=== PATIENT | female | born 1945 | race Caucasian/White ===

== ENCOUNTER 2020-08-23 10:11 | Inpatient (IN) ==
--- NOTE | 2020-08-22 12:00 | Anesthesiology Consultation ---
Date of Service August 22, 2020 Assessment & Plan (1) Encounter for pre-operative examination: COVID screening: Per assessment on 08/22: Travel screen negative, no known COVID- 19 positive contacts or current COVID-19 related symptoms. Patient vaccinated. Preop COVID testing done 08/22/20 at OR- will need to review results AM DOS. Chart Review Chart Review: Acceptable Risk for Surgery and Patient NOT seen in Pre Admission Testing History Surgery Operation Date: 08/23/20 12:10 Proposed Procedures p Left Reverse Total Shoulder Arthroplasty - Mian Hamilton MD Height/Weight Height: 5 ft 2 in Weight: 93.44 kg Allergies Allergy/AdvReac Type Severity Reaction Status Date / Time prednisone AdvReac Intermediate Syncope, Verified 08/22/20 11:57 lethargy Medications Home Medications Medication Instructions Recorded Confirmed Last Taken albuterol sulfate 1 inh INHALATION QID PRN 03/16/20 03/16/20 Unknown aspirin 81 mg PO QAM 03/16/20 03/16/20 Unknown fluticasone furoate-vilanterol 1 inh INHALATION QAM 03/16/20 03/16/20 Unknown [Breo Ellipta] lisinopril 20 mg PO QAM 03/16/20 03/16/20 Unknown meloxicam 7.5 mg PO QAM 03/16/20 03/16/20 Unknown omeprazole [Prilosec] 20 mg PO QAM 03/16/20 03/16/20 Unknown ropinirole 3 mg PO HS 03/16/20 03/16/20 Unknown simvastatin 20 mg PO HS 03/16/20 03/16/20 Unknown Past Medical History Medical History Chronic obstructive pulmonary disease well controlled GERD (gastroesophageal reflux disease) Hyperlipidemia Hypertension Osteoarthritis Osteoporosis Restless leg syndrome Past Family History Family History Other No family history of adverse response to anesthesia Past Surgical History Surgical History History of colonoscopy History of laparotomy Ovarian cyst removal History of tonsillectomy S/P hammer toe correction Left S/P knee replacement R/L Social History Smoking Status: Former smoker tobacco type: cigarettes Hx Alcohol Use: Yes Alcohol type: hard liquor alcohol intake frequency: a few times a month Hx Substance Use: No substance use type: does not use Lab Results Anesthesia Preop Results Results Anesthesia Widget: WBC 10.10 K/uL (4.8-10.8) 08/22/20 Hgb 11.8 g/dL (12.0-16.0) L 08/22/20 Hct 37.8 % (37-47) 08/22/20 Plt 364 K/uL (130-400) 08/22/20 Na 141 mmol/L (136-145) 08/22/20 K 3.7 mmol/L (3.5-5.1) 08/22/20 Cl 106 mmol/L (98-107) 08/22/20 CO2 27 mmol/L (21-32) 08/22/20 BUN 15 mg/dl (7-18) 08/22/20 Creat 0.68 mg/dl (0.6-1.2) 08/22/20 Glucose Level 97 mg/dl (70-99) 08/22/20 PT 9.8 Seconds (9.0-12.0) 08/22/20 PTT 24.5 Seconds (21.0-31.0) 08/22/20 INR 1.0 (0.9-1.1) 08/22/20 HA1c 6.1 % (4.5-5.6) H 08/22/20 Blood Type A Positive 08/22/20 Antibody Screen NEGATIVE 08/22/20 Testing Electrocardiogram Date: 08/22/20 NSR at 89bpm. Normal ECG. Chest X-Ray Date: 08/22/20 FINDINGS: Lung volumes are normal. There is no pneumothorax or pleural effusion. Linear left basilar opacity reflects atelectasis or scarring. Cardiac size is at the upper limits of normal. There is no consolidation or evidence for pulmonary edema. The appearance of the chest is unchanged. Osteoarthritis of the shoulders is incidentally noted. IMPRESSION: No acute cardiopulmonary findings. No significant change in appearance of the chest.
--- NOTE | 2020-08-22 18:40 | History & Physical Report ---
Date of Service August 22, 2020 Assessment & Plan (1) Anterior shoulder dislocation: Patient with recurrent dislocation to left shoulder after initial delayed presentation with failed. Likely has deficient rotator cuff as well. Treatment options discussed. With the amount of arthritic change to left shoulder, definitive treatment would be arthroplasty. Risks, benefits and alternatives to surgery including but not limited to infection, DVT, pain, stiffness, need for revision surgery, damage to blood vessels, damage to nerves, PE, , were discussed with the patient and they wish to proceed. Plan for left reverse total shoulder arthroplasty. Surgery scheduled for 08/23/20 at [facility] with Dr. Hamilton. All questions answered. F/u post operatively. Encounter type: subsequent encounter Laterality: left Qualified Code(s): S43.015D - Anterior dislocation of left humerus, subsequent encounter History of Present Illness Chief Complaint: Left shoulder pain Primary Care Provider: Tiffany Viral 75 year old female with PMHx significant for COPD, HTN, high cholesterol, RLS presents with acute onset of left shoulder pain. She suffered an injury to left shoulder after a fall on 08/10/20. She did not seek care initially. On 08/19/20 she presented to [facility] and was noted to have an anterior dislocation to her left shoulder. This was then subsequently reduced in the ED. She presented to our office yesterday with persistent pain. Repeat x-rays demonstrated recurrent dislocation left shoulder. CT scan of her shoulder was then obtained confirming the dislocation. She has significant degenerative changes to her shoulder and has had issues with her shoulder prior to this injury. Patient denies headaches, sweats, fevers, chills, double vision, blurred vision, cough, sore throat, dysphagia, chest pain, sob, wheezing, n/v/d/c, numbness, tingling, fatigue, urinary symptoms, mood disorders. ROS positive for left shoulder pain and stiffness. Allergies Allergy/AdvReac Type Severity Reaction Status Date / Time prednisone AdvReac Intermediate Syncope, Verified 08/22/20 11:57 lethargy Home Medications Medication Instructions Recorded Confirmed Type albuterol sulfate 1 inh INHALATION QID PRN 03/16/20 08/22/20 History aspirin 81 mg PO QAM 03/16/20 08/22/20 History fluticasone furoate-vilanterol 1 inh INHALATION QAM 03/16/20 08/22/20 History [Breo Ellipta] lisinopril 20 mg PO QAM 03/16/20 08/22/20 History meloxicam 7.5 mg PO QAM 03/16/20 08/22/20 History omeprazole [Prilosec] 20 mg PO QAM 03/16/20 08/22/20 History ropinirole 3 mg PO HS 03/16/20 08/22/20 History simvastatin 20 mg PO HS 03/16/20 08/22/20 History Past Med/Surg History Medical History Chronic obstructive pulmonary disease well controlled GERD (gastroesophageal reflux disease) Hyperlipidemia Hypertension Osteoarthritis Osteoporosis Restless leg syndrome Surgical History History of colonoscopy History of laparotomy Ovarian cyst removal History of tonsillectomy S/P hammer toe correction Left S/P knee replacement R/L Family History Other No family history of adverse response to anesthesia Social History Smoking Status: Former smoker Smoking End Date: 15 years ago; Second Hand Exposure: No; Hx Alcohol Use: Yes Alcohol type: hard liquor Hx Substance Use: No Preferred Language: Turkish Communication Ability: Effective Er Medical Technician Required: No Beliefs That Will Affect Care: None Current Living Situation: Alone Other Information That Helps Us Care for You: No Feels Safe at Home: Yes Safety Concerns: Feels Safe At This Time Assistive Devices: Denture - Upper and Denture - Lower Review of Systems All systems reviewed & are unremarkable except as noted in HPI & below Physical Exam Constitutional: well developed and well nourished; no acute distress Eyes: PERRL, conjunctivae normal, anicteric sclerae ENMT: external ear and nose normal, oropharynx normal Neck: trachea midline, no thyromegaly Respiratory: normal respiratory effort; no respiratory distress Cardiovascular: Rate/Rhythm: regular rate and regular rhythm Extremities: no edema Musculoskeletal: Diffuse tenderness to left shoulder with prominence anterior aspect of shoulder. Limited shoulder motion due to pain and known dislocation. Strength not tested. Finger and hand motion as well as elbow motion normal. Sensation and n/v status intact distally. Sensation intact over deltoid Skin: no rashes, warm and dry Neurologic: patellar DTR's 2+ bilat, sensation intact Psychiatric: A+Ox3, euthymic affect Results & Data ([facility]) Diagnostic Findings Left shoulder radiographs and CT scan demonstrate anterior shoulder dislocation with large hill sachs lesion, significant degenerative changes to glenohumeral joint. No definitive fracture noted, avulsion anterior glenoid suspected.
[~2020-08-23 10:11] MED LIST: ACETAMINOPHEN 500 MG TAB PO SCH; BUPIVACAINE 0.5 % 5 MG/1 ML PF 10ML VIAL ONE; CeleBREX 200 MG CAP PO SCH; FAMOTIDINE 20 MG TAB PO SCH; GABAPENTIN 300 MG CAP PO SCH; LR 15ML/HR IV SCH; ROPIVACAINE 0.5% HCL/PF 150 MG, BUPIVACAINE 0.75% MPF 20 ML, EPINEPHrine 30MG/30ML (OR ... INSTIL SCH; TRANEXAMIC ACID 1,000 MG **IV Intra-op IV SCH; TRANEXAMIC ACID 1,000 MG **IV Pre-op IV SCH; ceFAZolin 2000MG 2,000 MG/15 ML SYR IV SCH; dexAMETHasone 4 MG TAB PO SCH; oxyCODONE HCL 10 MG TABCR (OxyCONTIN) PO SCH
--- NOTE | 2020-08-23 10:42 | History & Physical Bridge Note ---
Date of Service August 23, 2020 History & Physical Bridge Note I have examined the patient, reviewed the History & Physical and in the interval since the performance of the History & Physical I have noted the following changes of clinical significance: no changes noted
[2020-08-23] MEDS ORDERED: PROPOFOL IV EMULSION 10 MG/ML 20 ML VIAL IV ONE (12:27)
[2020-08-23] MEDS ORDERED: fentaNYL citrate 100 MCG/2 ML VIAL ONE (12:27)
[2020-08-23] MEDS ORDERED: LIDOCAINE 2% 2 ML VIAL/AMP(20MG/ML) INFIL ONE (12:27)
[2020-08-23] MEDS ORDERED: ONDANSETRON INJ 2 MG/ML 2 ML VIAL ONE ×2 (12:27→14:12)
[2020-08-23] MEDS ORDERED: DEXAMETHASONE SOD INJ 4 MG/ML VIAL ONE ×2 (12:27→13:35)
[2020-08-23] MEDS ORDERED: MIDAZOLAM HCL 1 MG/ML 2ML VIAL ONE (12:28)
[2020-08-23] MEDS ORDERED: ATROPINE SULFATE 0.1 MG/ML 10ML SYR IV PRN (13:31)
[2020-08-23] MEDS ORDERED: ONDANSETRON INJ 2 MG/ML 2 ML VIAL IV PRN ×2 (13:31→17:22)
[2020-08-23] MEDS ORDERED: ePHEDrine sulfate 50 MG/ML AMP IV PRN (13:31)
[2020-08-23] MEDS ORDERED: fentaNYL citrate 100 MCG/2 ML VIAL IV PRN (13:31)
[2020-08-23] MEDS ORDERED: PHENYLEPHRINE HCL 10 MG/ML VIAL ONE (13:54)
[2020-08-23] MEDS ORDERED: PHENYLEPHRINE 100MCG/ML 5ML SYR ONE (13:54)
[2020-08-23] MEDS ORDERED: ROCURONIUM BROMIDE 10 MG/ML 5 ML VIAL IV ONE (14:12)
[2020-08-23] MEDS ORDERED: LARYING-O-JET KIT (LTA) ONE (14:12)
[2020-08-23] MEDS ORDERED: GLYCOPYRROLATE 0.2 MG/ML VIAL ONE (14:12)
[2020-08-23] MEDS ORDERED: NEOSTIGMINE METHYLSULFATE 1 MG/ML 10ML VIAL ONE (14:12)
--- NOTE | 2020-08-23 15:42 | Post Operative Brief Note ---
Immediate Post Op Note v1 Date of Surgery August 23, 2020 Pre & Post Diagnosis Operation Date: 08/23/20 12:10 Pre-Op Diagnosis: Primary Osteoarthritis glenohumeral joint, chronic rotator cuff arthropathy chronic rotator cuff tear, acute bony Bankart and Hill-Sachs lesions, anterior recurrent dislocation of Left Shoulder Post-Op Diagnosis: Same with massive rotator cuff tear advanced glenohumeral osteoarthritis I identified the patient and participated in the time-out.: Yes Procedure Operation Date: 08/23/20 12:10 Actual Procedures p Left Reverse Total Shoulder Arthroplasty(Left) - Mian Hamilton MD Surgeon Mian Hamilton MD Routeman Dickson NEVES Estimated Blood Loss 30 Findings Consistent with Post-Op Diagnosis Specimens Humeral head Drains Hemovac Drain Anesthesia Type General Regional Complications none Disposition Accompanied Patient To Recovery: No Disposition: Recovery Room Overlapping Procedure I was present for: the critical portions of procedure. Back up surgeon: was not required during procedure.
--- NOTE | 2020-08-23 16:17 | XRay Report ---
XR shoulder LT min 2V routine CLINICAL HISTORY: Post shoulder surgery COMPARISON STUDY: None. FINDINGS: Status post left reverse total shoulder arthroplasty. The hardware appears intact. Skin sta ples and surgical drains are in place. No fracture or dislocation. IMPRESSION: Status post reverse left total shoulder arthroplasty. No evidence for hardware complicat ion. ACT 112: Negative or not required by law. Electronically signed by: Ilia Maynard M.D. 08/23/2020 4:16 PM
--- NOTE | 2020-08-23 16:46 | Anesthesiology Progress Note ---
Date of Service August 23, 2020 Anesthesia Post Procedure Vital Signs Vital Signs: Temp Pulse Resp BP Pulse Ox 08/23/20 16:40 36.8 C 89 19 122/64 93 08/23/20 16:30 36.8 C 93 H 23 131/69 93 08/23/20 16:20 36.8 C 91 H 19 123/66 95 08/23/20 16:10 96 H 20 140/75 95 08/23/20 16:00 96 H 22 143/70 H 95 08/23/20 15:50 36.6 C 103 H 20 122/83 95 08/23/20 15:44 36.6 C 106 H 20 154/84 H 95 08/23/20 10:48 36.7 C 98 H 18 177/96 H 93 Pain Intensity Left Shoulder: Pain Intensity: 0 Transfer of Care Handoff Completed per policy Notes Mental Status: alert / awake / arousable and participated in evaluation Patient Amnestic to Procedure: Yes Nausea / Vomiting: adequately controlled Pain: adequately controlled Airway Patency, RR, SpO2: stable & adequate BP & HR: stable & adequate Hydration State: stable & adequate Anesthetic Complications: no major complications apparent and Pt Satisfied with anesthetic care Notes: block is functioning well
[2020-08-23] MEDS ORDERED: ALBUTEROL HFA 8 GM INHALER INH PRN (17:22)
[2020-08-23] MEDS ORDERED: NALOXONE HCL 0.4 MG/1 ML VIAL/CARP IV PRN (17:22)
[2020-08-23] MEDS ORDERED: MAGNESIUM HYDROXIDE SUSP 30 ML UDC PO PRN (17:22)
[2020-08-23] MEDS ORDERED: diphenhydrAMINE 50 MG/ML VIAL IV PRN (17:22)
[2020-08-23] MEDS ORDERED: bisacodyL 10 MG SUPP PR PRN (17:22)
--- NOTE | 2020-08-23 17:37 | Operative Report (OR) ---
DATE OF OPERATION: 08/23/2020 INDICATION FOR PROCEDURE: The patient is a 75-year-old female who had an anterior dislocation of her left shoulder when she had a traction injury to her arm. She had delayed to treatment and went to the Emergency Room, had it reduced, but her shoulder was redislocated afterwards. Her radiographs demonstrate severe osteoarthritis of the glenohumeral joint with anterior dislocation of the humerus. CT scan demonstrated a large Hill-Sachs lesion and a bony Bankart lesion, chronic rotator cuff tear and advanced DJD of the glenohumeral joint with significant subchondral cystic changes underneath the humeral and glenoid articular surfaces consistent with chronic osteoarthritis. Clinically, her opposite shoulder has a chronic rotator cuff tear as well and degenerative arthritis. PREOPERATIVE DIAGNOSES: Left shoulder acute unstable dislocation with recurrent dislocation with preexisting history of severe osteoarthritis of glenohumeral joint with rotator cuff arthropathy and chronic large rotator cuff tear. POSTOPERATIVE DIAGNOSES: Left shoulder acute unstable dislocation with recurrent dislocation with preexisting history of severe osteoarthritis of glenohumeral joint with rotator cuff arthropathy and chronic large rotator cuff tear including acute bony Bankart glenoid fracture, acute humeral head Hill-Sachs lesion, advanced glenohumeral degenerative arthritis, reparable rotator cuff tear with massive rotator cuff tear with rotator cuff arthropathy and ruptured long head of biceps tendon. PROCEDURE: Left reverse total shoulder arthroplasty. SURGEON: Mian Hamilton MD. SENIOR IT RECRUITER: Dickson Merino PA-C. ANESTHESIA: Regional block and general anesthetic. OPERATIVE PROCEDURE: The patient was taken to the operating room after regional block anesthetic placed. She was placed under general anesthetic. She was positioned on the operating room table in about a 40-degree beach chair position. A towel roll was placed under medial border of left scapula. She was translated to left side bed, so her shoulder could be manipulated off the bed as necessary. A foam headrest was used. Protective eyewear was placed. All the lower extremities were well padded. TEDs and SCDs were placed. Left shoulder exam demonstrated an anterior dislocated shoulder with reasonably good passive range of motion despite the dislocation. Humerus was obviously located anteriorly proximally. She had an obese arm. There is ecchymosis noted. There is no skin blister, no skin breakdown at all. Left shoulder was sterilely prepped and draped in sterile fashion with ChloraPrep. An anterior deltopectoral approach was performed. A longitudinal incision was made through the skin, a fairly deep layer of fat was divided down to the fascia. The cephalic vein was dissected out and retracted laterally with the deltoid. The pectoral and deltoid interval was identified, dissected down and I entered a large old fluid collection from the trauma. This was a seroma from her old injury and this was evacuated. Thickened bursa was resected some bleeders were coagulated. The humeral head was identified to be dislocated anterior to the glenoid. She had a massive rotator cuff tear with intact teres minor and about a centimeter of the inferior capsular and subscapularis tendon tissue only, with the remainder of the subscapularis being torn and retracted medially and scarred down anteriorly. To enhance exposure, I released the upper centimeter of the pectoralis tendon. Then I released the inferior subscapularis and capsule doing a subperiosteal peel, which exposed a large inferior osteophyte. I placed retractors between the osteophyte and the capsule and resected the osteophytes with artist chisels and rongeur. Then I released the capsule off the neck of the humerus. I put a traction suture into the capsular subscapularis tissue. The conjoined tendon was identified. The coracoid was identified. A self-retaining retractor was placed. At this time with the shoulder already anteriorly dislocated, I extended and externally rotated the humerus and then went ahead and placed the cutting guide for the Tornier reverse total shoulder replacement. Cutting guide was adjusted in 20 degrees of retroversion. The oscillating saw was used to remove the head fragment. The head fragment was inspected and there was a very large Hill-Sachs lesion and there was also a large divot in humeral head due to chronic osteoarthritic wear and there was eburnated exposed bone on the humeral head. Bone was actually fairly solid in quality. After all osteophytes were removed, the centering awl was used to open up the canal and then broaches were used up to a size 3B long broach and then a cup protector was placed and then humerus was retracted with a Fukuda retractor behind the glenoid. Glenoid had a very large posterior superior osteophyte noted. There was eburnated bone and there was a small rim of the posterior cartilage remaining of the posterior inferior glenoid only. Anteriorly, there was a bony Bankart lesion, which appeared to be acute due to the recent dislocation injury. The bony Bankart fragment was removed and then dissection was taken subperiosteally between the anterior glenoid bone and the capsule. A Bankart-type retractor was placed. Then the labrum was resected circumferentially and then an inferior, posterior inferior capsular release was performed with electrocautery on bone and a Nelson elevator on bone to stay away from the axillary nerve. With the glenoid fully exposed now, the guide for the 25 mm baseplate was placed in 10 degrees of inferior tilt and the central drill hole was made. Then the reamer for a 25 baseplate was used for the Aequalis hydroxyapatite coated baseplate. The bone was very hard in quality. The centering awl was widened for the post of the implant. After copious irrigation, I used cancellous bone from the humeral head and placed on the back of the implant and then impacted the implant into position on the glenoid with tight pressfit, and then transfixed the baseplate, which was a 25 mm Aequalis hydroxyapatite coated baseplate. The screws used were anterior and posterior compression screws of 20 and 18 mm and superior and inferior locking screws 35 and 20 mm. There was excellent fixation. The fan reamer for the 36 mm glenosphere was used. A large posterior osteophyte was resected with artist chisels and rongeur. After irrigation, the 36 mm glenosphere was impacted onto the baseplate and the screws were securely tightened. The sphere was assessed to be stable. Trial reduction was then performed and a +9 x 36 humeral insert gave the best stability through full range of motion with appropriate tension, no shuck and stable range of motion. The trials were removed. 1 drill hole was made in the lower bone adjacent to the lesser tuberosity and one #5 FiberWire suture was placed to pass through the small portion of capsular subscap tissue that could be repaired as some further stability protection with repairing this small piece of capsule. The final implant was then assembled, which was the 3B long Ascend Flex PTC humeral stem assembled to the +0 high offset humeral tray and the 36 +9 humeral insert. After irrigation of the humerus, the implant was impacted in position with a tight pressfit. The humerus was reduced to the glenosphere. The capsular subscapularis tissue was repaired with the #5 FiberWire suture, which was placed transosseously with a Joaquin-Alvin suture technique. The joint was copiously irrigated and the range of motion was assessed at 110 degrees of flexion, 80 degrees of abduction and 60 degrees external rotation with stable range of motion, no shuck. The wound was irrigated and the pectoralis tendon release was repaired with [id number] #2 Fiberwire sutures and the deltopectoral interval was repaired with interrupted #1 Vicryl sutures over 2 Hemovac drains, which were brought out laterally. The subcutaneous tissue was closed with interrupted 2-0 Vicryl sutures and the skin was closed with janes and sterile dressings were applied and a shoulder immobilizer. EDINSON Sandy was my bar assistant. He assisted throughout the procedure with positioning, prepping, draping, arm positioning, soft tissue retraction, and performed the outer closure and will participate in postoperative care of the patient. I attest to the content of the Intraoperative Record and any orders documented therein. Any exception s are noted below.
[2020-08-23] MEDS ORDERED: SODIUM CHLORIDE 0.9% 1000ML 1,000 ML IV SCH (19:00)
[2020-08-23] MEDS: ceFAZolin 2000MG 2,000 MG/15 ML SYR IV SCH (20:09)
[2020-08-23] MEDS: SENNA 8.6 MG TAB PO SCH (20:09)
[2020-08-23] MEDS: SIMVASTATIN 20 MG TAB PO SCH (20:09)
[2020-08-23] MEDS: DOCUSATE SODIUM 100 MG CAP PO SCH (20:09)
[2020-08-23] MEDS: rOPINIRole HCL 1 MG TABLET PO SCH (20:09)
[2020-08-23] MEDS: ACETAMINOPHEN 500 MG TAB PO SCH (22:31)
[2020-08-24] MEDS: ceFAZolin 2000MG 2,000 MG/15 ML SYR IV SCH (03:31)
[2020-08-24] MEDS: ACETAMINOPHEN 500 MG TAB PO SCH ×3 (05:09→21:50)
[2020-08-24 05:35] LABS: Hematocrit (blood only) 29.5 % (37-47); Hemoglobin 9.5 g/dL (12.0-16.0); Immature Granulocytes # (auto) 0.02 K/uL (0.00-0.02); Immature Granulocytes % (auto) 0.2 %; Lymphocytes # (auto) 0.67 K/uL (1.2-3.4); Lymphocytes % (auto) 6.7 %; Mean Corpuscular Hemoglobin 27.1 pg (25-34); Mean Corpuscular Hgb Conc 32.2 g/dL (32-36); Mean Platelet Volume 9.1 fL (7.4-10.4); Monocytes # (auto) 0.78 K/uL (0.11-0.59); Monocytes % (auto) 7.8 %; Neutrophils # (auto) 8.47 K/uL (1.4-6.5); Neutrophils % (auto) 85.3 %; Platelet Count 259 K/uL (130-400); RDW Standard Deviation 46.3 fL (36.4-46.3); Red Blood Count 3.51 M/uL (4.2-5.4); White Blood Count 9.94 K/uL (4.8-10.8)
[2020-08-24 06:05] LABS: BUN Creatinine Ratio 23.1 (10-20); Creatinine Clr Calc Pharmacy 71.4 ml/min; Est GFR (African American) 92.5 ml/min; Est GFR (Non-African American) 79.8 ml/min; Potassium 4.1 mmol/L (3.5-5.1)
[2020-08-24] MEDS: MULTIVITAMIN TAB PO SCH (08:01)
[2020-08-24] MEDS: lisinopril 20 MG TAB PO SCH (08:01)
[2020-08-24] MEDS: DOCUSATE SODIUM 100 MG CAP PO SCH ×2 (08:01→20:21)
[2020-08-24] MEDS: FLUTICASONE/VILANTEROL 200/25MCG 14 PUFFS/INHALER INH SCH (08:02)
[2020-08-24] MEDS: ASPIRIN 81 MG ECTAB PO SCH (08:02)
--- NOTE | 2020-08-24 10:07 | Orthopedic Progress Note ---
Date of Service August 24, 2020 Assessment & Plan (1) Anterior shoulder dislocation: Postop day 1 status post left reverse total shoulder arthroplasty PT/OT protocols. Nonweightbearing left upper extremity. Minimal exercises for the left shoulder at this time including shoulder shrugs, pendulums. DVT prophylaxis-SCDs, MILADYS hose. Pain management as written. We will recheck her later today concerning her extremity weakness. DC planning-discharge to home when stable. No dedicated therapy for 4 to 6 weeks Admission and Anticipated Discharge Date Admission Date: August 23, 2020 Subjective Postop day 1 Nursing relates patient having difficulty moving her left lower extremity earlier this morning. Also stating that she was unable to extend her third through fifth fingers of the operative upper extremity. Upon arriving to the patient's room, physical therapy is currently getting ready to go through their session. Patient is awake and alert sitting up in bed. Left upper extremity is in a sling. Patient relates that she was up multiple times during the night to use the restroom. She was noticing that she had some difficulty moving her left lower extremity and it felt weak. She also states that she had difficulty moving fingers of her left hand which have seems to have gotten better. We discussed that this was likely secondary to her block that is still functioning at this time. No other complaints at this time. Denies shortness of breath, chest pain, lightheadedness. Physical Exam Physical Exam: This morning she demonstrates that she can move the left lower extremity well. She is able to do straight leg raise and is able to flex and extend the left knee actively. She has history of a left triple arthrodesis of her left ankle and she has minimal range of motion of her ankle at this time. She does have some mild swelling of the left lower extremity compared to the right. She states that her swelling started several weeks ago after she started going to a physical therapist for her foot. She denies any numbness or tingling going down the left lower extremity. She denies any radicular pain going down the left lower extremity. Dressings are clean, dry, and intact. She is capable of doing shoulder shrugs this morning. She is able to fully extend all of her fingers at this time. She does have a trigger finger of the middle finger at this time. She is able to fully extend the finger though. She states she has continued numbness in her hand and fingers at this time. Housing Case Manager strength is weaker when compared to the right likely secondary to her upper extremity block. She does have some mild weakness of her left lower extremity compared to the right but not grossly so. She has no facial asymmetry. Hemovac is present with minimal drainage. Results & Data ([facility]) Vital Signs (Past 12 Hours) Vital Signs Temp Pulse Resp BP Pulse Ox 08/24/20 07:37 36.6 C 89 16 120/69 91 08/24/20 04:13 36.4 C L 85 16 120/74 93 08/23/20 22:45 36.7 C 91 H 18 125/80 91 Laboratory Results Laboratory Results WBC 9.94 K/uL (4.8-10.8) 08/24/20 05:22 RBC 3.51 M/uL (4.2-5.4) L 08/24/20 05:22 Hgb 9.5 g/dL (12.0-16.0) L 08/24/20 05:22 Hct 29.5 % (37-47) L 08/24/20 05:22 MCV 84.0 fL (80-100) 08/24/20 05:22 MCH 27.1 pg (25-34) 08/24/20 05:22 MCHC 32.2 g/dL (32-36) 08/24/20 05:22 RDW Std Deviation 46.3 fL (36.4-46.3) 08/24/20 05:22 RDW Coeff of Edd 15.0 % (11.5-14.5) H 08/24/20 05:22 Plt Count 259 K/uL (130-400) 08/24/20 05:22 MPV 9.1 fL (7.4-10.4) 08/24/20 05:22 Immature Gran % (Auto) 0.2 % 08/24/20 05:22 Neut % (Auto) 85.3 % 08/24/20 05:22 Lymph % (Auto) 6.7 % 08/24/20 05:22 Gove % (Auto) 7.8 % 08/24/20 05:22 Eos % (Auto) 0.0 % 08/24/20 05:22 Baso % (Auto) 0.0 % 08/24/20 05:22 Neut # (Auto) 8.47 K/uL (1.4-6.5) H 08/24/20 05:22 Lymph # (Auto) 0.67 K/uL (1.2-3.4) L 08/24/20 05:22 Gove # (Auto) 0.78 K/uL (0.11-0.59) H 08/24/20 05:22 Eos # (Auto) 0.00 K/uL (0-0.5) 08/24/20 05:22 Baso # (Auto) 0.00 K/uL (0-0.2) 08/24/20 05:22 Immature Gran # (Auto) 0.02 K/uL (0.00-0.02) 08/24/20 05:22 Sodium 140 mmol/L (136-145) 08/24/20 05:22 Potassium 4.1 mmol/L (3.5-5.1) 08/24/20 05:22 Chloride 109 mmol/L (98-107) H 08/24/20 05:22 Carbon Dioxide 28 mmol/L (21-32) 08/24/20 05:22 Anion Gap 3.0 (3-11) 08/24/20 05:22 BUN 17 mg/dl (7-18) 08/24/20 05:22 Creatinine 0.74 mg/dl (0.6-1.2) 08/24/20 05:22 Est Cr Clr Drug Dosing 71.4 ml/min 08/24/20 05:22 Est GFR ( Amer) 92.5 ml/min 08/24/20 05:22 Est GFR (Non-Af Amer) 79.8 ml/min 08/24/20 05:22 BUN/Creatinine Ratio 23.1 (10-20) H 08/24/20 05:22 Glucose 124 mg/dl (70-99) H 08/24/20 05:22 Calcium 8.0 mg/dl (8.5-10.1) L D 08/24/20 05:22 Impressions Shoulder X-Ray 08/23/20 16:00 XR shoulder LT min 2V routine CLINICAL HISTORY: Post shoulder surgery COMPARISON STUDY: None. FINDINGS: Status post left reverse total shoulder arthroplasty. The hardware appears intact. Skin janes and surgical drains are in place. No fracture or dislocation. IMPRESSION: Status post reverse left total shoulder arthroplasty. No evidence for hardware complication. ACT 112: Negative or not required by law. Electronically signed by: Ilia Maynard M.D. 08/23/2020 4:16 PM (1) Anterior shoulder dislocation Encounter type: subsequent encounter Laterality: left Qualified Code(s): S43.015D - Anterior dislocation of left humerus, subsequent encounter
[2020-08-24] MEDS: oxyCODONE HCL IR 5 MG TAB (IMMEDIATE RELEASE) PO PRN ×2 (14:52→20:19)
[2020-08-24] MEDS: rOPINIRole HCL 1 MG TABLET PO SCH (20:20)
[2020-08-24] MEDS: SENNA 8.6 MG TAB PO SCH (20:21)
[2020-08-24] MEDS: SIMVASTATIN 20 MG TAB PO SCH (20:21)
[2020-08-24] MEDS: HYDROmorphone INJ 0.5 MG/0.5 ML SYR IV PRN (21:49)
[2020-08-25] MEDS: oxyCODONE HCL IR 5 MG TAB (IMMEDIATE RELEASE) PO PRN (05:11)
[2020-08-25] MEDS: ACETAMINOPHEN 500 MG TAB PO SCH (05:12)
[2020-08-25] MEDS: DOCUSATE SODIUM 100 MG CAP PO SCH (07:58)
[2020-08-25] MEDS: ASPIRIN 81 MG ECTAB PO SCH (07:58)
[2020-08-25] MEDS: MULTIVITAMIN TAB PO SCH (07:58)
[2020-08-25] MEDS: lisinopril 20 MG TAB PO SCH (07:58)
[2020-08-25] MEDS: FLUTICASONE/VILANTEROL 200/25MCG 14 PUFFS/INHALER INH SCH (07:59)
--- NOTE | 2020-08-25 10:04 | Orthopedic Progress Note ---
Date of Service August 25, 2020 Assessment & Plan (1) Anterior shoulder dislocation: Postop day 2 status post left reverse total shoulder arthroplasty PT/OT protocols. Nonweightbearing left upper extremity. Minimal exercises for the left shoulder at this time including shoulder shrugs, pendulums. DVT prophylaxis-SCDs, MILADYS hose. Pain management as written. DC planning-DC to home today. No dedicated therapy for 4 to 6 weeks Admission and Anticipated Discharge Date Admission Date: August 23, 2020 Subjective Postop day 2 Patient sitting up in bed awake and alert. No complaints this morning. Pain is controlled. She feels well. She states she slept well. She is hoping to go home this morning. Physical Exam Physical Exam: Dressing has been removed. Wound appears benign. Sling is in place. She has good range of motion of her left wrist and fingers. Sensation is intact. No further problems with left lower extremity with weakness. Results & Data ([facility]) Vital Signs (Past 12 Hours) Vital Signs Temp Pulse Resp BP BP Pulse Ox 08/25/20 09:44 36.7 C 81 16 132/83 118/71 91 08/25/20 07:23 36.7 C 81 16 118/71 91 08/25/20 06:35 36.6 C 86 18 133/79 92 08/24/20 23:42 36.7 C 82 18 109/69 93 (1) Anterior shoulder dislocation Encounter type: subsequent encounter Laterality: left Qualified Code(s): S43.015D - Anterior dislocation of left humerus, subsequent encounter
[2020-08-25] MEDS: HYDROmorphone INJ 0.5 MG/0.5 ML SYR IV PRN (11:36)
--- NOTE | 2020-09-04 12:33 | Discharge Summary ---
Date of Service September 04, 2020 Admission HPI Per Admitting Provider 75 year old female with PMHx significant for COPD, HTN, high cholesterol, RLS presents with acute onset of left shoulder pain. She suffered an injury to left shoulder after a fall on 08/10/20. She did not seek care initially. On 08/19/20 she presented to [facility] and was noted to have an anterior dislocation to her left shoulder. This was then subsequently reduced in the ED. She presented to our office yesterday with persistent pain. Repeat x-rays demonstrated recurrent dislocation left shoulder. CT scan of her shoulder was then obtained confirming the dislocation. She has significant degenerative changes to her shoulder and has had issues with her shoulder prior to this injury. Patient denies headaches, sweats, fevers, chills, double vision, blurred vision, cough, sore throat, dysphagia, chest pain, sob, wheezing, n/v/d/c, numbness, tingling, fatigue, urinary symptoms, mood disorders. ROS positive for left shoulder pain and stiffness. Admission Exam Per Admitting Provider Physical Exam Constitutional: well developed and well nourished; no acute distress Eyes: PERRL, conjunctivae normal, anicteric sclerae ENMT: external ear and nose normal, oropharynx normal Neck: trachea midline, no thyromegaly Respiratory: normal respiratory effort; no respiratory distress Cardiovascular: Rate/Rhythm: regular rate and regular rhythm Extremities: no edema Musculoskeletal: Diffuse tenderness to left shoulder with prominence anterior aspect of shoulder. Limited shoulder motion due to pain and known dislocation. Strength not tested. Finger and hand motion as well as elbow motion normal. Sensation and n/v status intact distally. Sensation intact over deltoid Skin: no rashes, warm and dry Neurologic: patellar DTR's 2+ bilat, sensation intact Psychiatric: A+Ox3, euthymic affect Principal Diagnosis Primary Osteoarthritis glenohumeral joint, chronic rotator cuff arthropathy chronic rotator cuff tear, acute bony Bankart and Hill-Sachs lesions, anterior recurrent dislocation of Left Shoulder with massive RTC tear Discharge Data Allergies Allergy/AdvReac Type Severity Reaction Status Date / Time prednisone AdvReac Intermediate Syncope, Verified 08/23/20 10:33 lethargy Procedures Performed Operation Date: 08/23/20 12:10 Actual Procedures p Left Reverse Total Shoulder Arthroplasty(Left) - Mian Hamilton MD Ordered Studies 08/23/20 05:00 US - OR guided needle placemen Routine Hospital Course (1) Osteoarthritis of glenohumeral joint: Date of Service August 25, 2020 Assessment & Plan (1) Anterior shoulder dislocation: Postop day 2 status post left reverse total shoulder arthroplasty PT/OT protocols. Nonweightbearing left upper extremity. Minimal exercises for the left shoulder at this time including shoulder shrugs, pendulums. DVT prophylaxis-SCDs, MILADYS hose. Pain management as written. DC planning-DC to home today. No dedicated therapy for 4 to 6 weeks Admission and Anticipated Discharge Date Admission Date: August 23, 2020 Subjective Postop day 2 Patient sitting up in bed awake and alert. No complaints this morning. Pain is controlled. She feels well. She states she slept well. She is hoping to go home this morning. Physical Exam Physical Exam: Dressing has been removed. Wound appears benign. Sling is in place. She has good range of motion of her left wrist and fingers. Sensa tion is intact. No further problems with left lower extremity with weakness. Results & Data ([facility]) Vital Signs (Past 12 Hours) Vital Signs Temp Pulse Resp BP BP Pulse Ox 08/25/20 09:44 36.7 C 81 16 132/83 118/71 91 08/25/20 07:23 36.7 C 81 16 118/71 91 08/25/20 06:35 36.6 C 86 18 133/79 92 08/24/20 23:42 36.7 C 82 18 109/69 93 (1) Anterior shoulder dislocation Encounter type: subsequent encounter Laterality: left Qualified Code(s): S43.015D - Anterior dislocation of left humerus, subsequent encounter Total Time Total Time Spent Total Time Spent (In Minutes): 5 Discharge Plan Discharge Items Patient Disposition: Home - Home Health Services Reason For Visit: Primary Osteoarthritis, Dislocation of Shoulder Discharge Diagnosis: Osteoarthritis right shoulder, chronic dislocation right shoulder Activity: Per Instructions section Weightbearing: Right non-weightbearing Non-emergency contact: Surgeon Call non-emergency contact if: you have any medication questions, your pain is not controlled, your temperature is above 101.5, your wound has increased redness and your wound has increased drainage Follow-up/Referrals: Tiffany Stratton PA-C [Primary Care Provider] - Diet: Regular Addtl Attending Provider Instructions: ACTIVITY RECOMMENDATIONS: SELF CARE INSTRUCTIONS AFTER TOTAL SHOULDER ARTHROPLASTY REVERSE A. You may do daily exercises as taught in physical therapy while in hospital. No lifting with the operative arm. B. You are to wear your sling/immobilizer at all times EXCEPT when performing your daily exercises and for hygiene purposes. C. You may perform dry, daily dressing changes. Please keep your incision covered. You may shower 48 hours after surgery. Do not apply soap or any ointment/lotions directly over incision. Do not soak incision in bath tub/swimming pool. D. You may use ice as needed to operative shoulder. SPECIAL CARE INSTRUCTIONS: VERY IMPORTANT TO READ AND REVIEW A. There are a few signs you need to watch for after you are home. Call [facility] at [phone] if you experience any of the followin. Increased severe shoulder pain. Some pain is expected especially when you exercise. 2. Increased swelling in you shoulder or arm; pain or swelling in either upper extremity. 3. Any fluid drainage from the incision. 4. Shortness of breath or chest pain. B. Please call [facility] at [phone] if you have any questions or concerns about your operation or recovery. C. Call your physician if: 1. Temperature is greater than 101 degrees (F). 2. Pain is not relieved by prescribed pain medications. 3. Increase drainage or redness from incision. 4. Unanswered questions or concerns. FOLLOW UP VISIT: Please call [facility] at [phone] to schedule a follow up appointment with Dr. Hamilton or his PA in 12-14 days from your surgery date. Stand-Alone Forms: My [employer], Smoking Cessation Medications and DC Order Prescriptions: New acetaminophen 500 mg Tablet 1,000 mg PO Q8 14 Days Qty: 84 RF: 0 polyethylene glycol 3350 [Miralax] 17 gram powder in packet 17 g PO DAILY PRN (Reason: constipation) Qty: 5 RF: 0 oxycodone 5 mg Tablet 5 mg PO Q4H MDD 6 PRN (Reason: pain) Qty: 30 RF: 0 Continued lisinopril 20 mg Tablet 20 mg PO QAM RF: 0 ropinirole [Requip] 3 mg Tablet 3 mg PO HS RF: 0 simvastatin 20 mg Tablet 20 mg PO HS RF: 0 omeprazole 20 mg Capsule,Delayed Release(Dr/Ec) 20 mg PO QAM RF: 0 aspirin 81 mg Tablet 81 mg PO QAM RF: 0 Breo Ellipta 200-25 mcg/dose Blister With Device 1 inh INHALATION QAM RF: 0 albuterol sulfate 90 mcg/actuation Hfa Aerosol Inhaler 1 inh INHALATION QID PRN (Reason: sob) RF: 0 bupropion HCl 75 mg Tablet 75 mg PO RF: 0 Discontinued meloxicam 7.5 mg Tablet 7.5 mg PO QAM RF: 0 Discharge Orders: Discharge Order (Routine); Ordered 08/25/20 Ordered By: Dickson Merino Admission Data Admit Date/Time: 08/23/20 16:00 Attending Provider: Mian Hamilton Admit Provider: Mian Hamilton Primary Care Provider: Tiffany Stratton Other Interventions: Discharge Summary Assessment (RN) Last Done: 08/25/20 09:44
== END 2020-08-25 12:47 | disposition home health service (06) | DRG 483 ==
LOC: ASU 10:11 → 3E 16:00

== ENCOUNTER 2021-06-22 08:15 | Inpatient (IN) ==
--- NOTE | 2021-05-24 10:56 | PAT Medication Instructions ---
Medication Instructions Date of Service May 24, 2021 Home Medications Medication Instructions Recorded polyethylene glycol 3350 17 gram 17 g PO DAILY PRN #5 ea 08/25/20 oral powder packet (Miralax) albuterol sulfate 90 mcg/actuation aerosol inhaler 1 inh INHALATION QID PRN aspirin 81 mg tablet 81 mg PO QAM fluticasone furoate 200 mcg-vilanterol 25 mcg/dose inhalation powder (Breo Ellipta) 1 inh INHALATION QAM lisinopril 20 mg tablet 20 mg PO QAM omeprazole 20 mg capsule,delayed release 20 mg PO QAM ropinirole 3 mg tablet (Requip) 3 mg PO HS simvastatin 20 mg tablet 20 mg PO HS bupropion HCl 75 mg tablet 75 mg PO BID polyethylene glycol 3350 17 gram oral powder packet (Miralax) 17 g PO DAILY PRN sulfamethoxazole 800 mg-trimethoprim 160 mg tablet 1 tab PO BID Continue as directed sulfamethoxazole 800 mg-trimethoprim 160 mg tablet 1 tab PO BID DO NOT take the morning of surgery lisinopril 20 mg tablet 20 mg PO QAM polyethylene glycol 3350 17 gram oral powder packet (Miralax) 17 g PO DAILY PRN Take morning of surgery With a small sip of water, OTHERWISE NOTHING TO EAT OR DRINK AFTER MIDNIGHT: albuterol sulfate 90 mcg/actuation aerosol inhaler 1 inh INHALATION QID PRN (use if needed; please bring with you to hospital day of surgery if possible) aspirin 81 mg tablet 81 mg PO QAM (unless surgeon directed otherwise) fluticasone furoate 200 mcg-vilanterol 25 mcg/dose inhalation powder (Breo Ellipta) 1 inh INHALATION QAM omeprazole 20 mg capsule,delayed release 20 mg PO QAM bupropion HCl 75 mg tablet 75 mg PO BID Take evening before surgery albuterol sulfate 90 mcg/actuation aerosol inhaler 1 inh INHALATION QID PRN (if needed) ropinirole 3 mg tablet (Requip) 3 mg PO HS simvastatin 20 mg tablet 20 mg PO HS bupropion HCl 75 mg tablet 75 mg PO BID polyethylene glycol 3350 17 gram oral powder packet (Miralax) 17 g PO DAILY PRN (if needed) Other Notes If you have any questions please call us at [phone] or [phone] or [phone] or [phone]
--- NOTE | 2021-05-29 10:32 | Anesthesiology Consultation ---
Date of Service May 29, 2021 Assessment & Plan (1) Encounter for pre-operative examination: Chart Review Chart Review: Acceptable Risk for Surgery (pending preop Covid testing results ) and Patient seen in Pre Admission Testing Per PAT appt on 05/29/21, patient denies any recent travel or large group activities. No known Covid positive exposures or Covid related symptoms. No known Covid infection in the past 90 days. PT is vaccinated for Covid. Preop Covid testing scheduled 06/20/21= will await results. Educated on importance of self quarantining, social distancing and wearing mask in public for the patient one week prior to surgery and after Covid testing done Left reverse TSA 08/23/20= Done under GA with Grade 1 view with MAC #3. ETT #7.0. DL x 1 atraumatic. History Surgery Operation Date: 06/22/21 07:15 Proposed Procedures p Right Ankle: Triple Arthrodesis with Percutaneous Tendon Achilles Lengthening - Lavon Hodge DO s Percutaneous Tendon Achilles Lengthening - Lavon Hodge DO s Extostectomy Dorsal Talus - Lavon Hodge DO Height/Weight Height: 5 ft 2 in Weight: 90.9 kg Allergies Allergy/AdvReac Type Severity Reaction Status Date / Time prednisone AdvReac Intermediate Syncope, Verified 05/23/21 11:35 lethargy Medications Home Medications Medication Instructions Recorded Confirmed Last Taken albuterol sulfate 90 mcg/actuation 1 inh INHALATION QID PRN 03/16/20 05/23/21 Unknown aerosol inhaler aspirin 81 mg tablet 81 mg PO QAM 03/16/20 05/23/21 08/22/20 10:00 fluticasone furoate 200 1 inh INHALATION QAM 03/16/20 05/23/21 08/22/20 08:00 mcg-vilanterol 25 mcg/dose inhalation powder (Breo Ellipta) lisinopril 20 mg tablet 20 mg PO QAM 03/16/20 05/23/21 08/22/20 08:00 omeprazole 20 mg capsule,delayed 20 mg PO QAM 03/16/20 05/23/21 08/23/20 05:00 release ropinirole 3 mg tablet (Requip) 3 mg PO HS 03/16/20 05/23/21 08/22/20 21:00 simvastatin 20 mg tablet 20 mg PO HS 03/16/20 05/23/21 08/22/20 21:00 bupropion HCl 75 mg tablet 75 mg PO BID 08/23/20 05/23/21 08/22/20 20:00 polyethylene glycol 3350 17 gram 17 g PO DAILY PRN #5 ea 08/25/20 05/23/21 Unknown oral powder packet (Miralax) Past Medical History Medical History (Updated 05/29/21 @ 12:48 by Gloria Yeung PA-C) Chronic obstructive pulmonary disease Well controlled with Breo- rare rescue inhaler rare GERD (gastroesophageal reflux disease) Well controlled and stable History of anesthesia reaction EXCESS URINATION POST OP WITH LAST FOOT SURGERY [facility] Hyperlipidemia Hypertension Osteoporosis Restless leg syndrome Stable Stroke Found incidentally on 01/2021 CT scan of the head- no previous/known symptoms of CVA PCP aware- per records- patient on "ASA, statin, BP controlled" Urinary incontinence Ongoing UTI (urinary tract infection) Just finished antibiotic on 05/25/21 Following with urology Exercise / Class Metabolic Activity III < 4 Walking/Shop/Light housework (no chest pain or SOB with flat surface ambulation- uses wheeled walker ) Past Family History Family History Other No family history of adverse response to anesthesia No known health problems Past Surgical History Surgical History History of colonoscopy History of esophagogastroduodenoscopy (EGD) History of foot surgery [facility] 04/27/2020 History of laparotomy Ovarian cyst removal History of repair of rotator cuff LEFT History of tonsillectomy S/P hammer toe correction Left S/P knee replacement R/L Past Anesthesia History No Hx of Anesthesia Complications (with exception to one episode of increased urination after foot surgery- no issues s/p shoulder surgery) and No Family Hx of Anesthesia Complications History of PONV No Hx of Motion Sickness and History of PONV Social History Smoking Status: Former smoker tobacco type: cigarettes Smoking End Date: QUIT 15-20 YRS AGO Hx Alcohol Use: Yes Alcohol type: hard liquor alcohol intake frequency: holidays/special occasions only Hx Substance Use: No substance use type: does not use Review of Systems Hx of snoring- no hx of sleep study Patient denies chest pain, shortness of breath, dyspnea on exertion, cough, wheezing, palpitations. No hx of seizures, IN. No hx of blood clots or blood transfusions Physical Exam Vital Signs VITALS BP 134/80 P 83 TEMP 97.9 SP02 95% RESP 16 Constitutional no acute distress ENMT Mouth: no TMJ clicking Thyromental Distance: > or= 3.5 Finger Breadths (4.0) Mallampati Class: II Full dentures on top and bottom Neck + limited neck extension (significant ) Respiratory normal respiratory effort; no respiratory distress Auscultation: lungs clear to auscultation bilaterally; no wheezes Cardiovascular Rate/Rhythm: regular rate and regular rhythm Heart Sounds: no murmur Vessels: no carotid bruit Musculoskeletal Spine: + pain with cervical ROM (mild ) Extremities: extremities normal to inspection Psychiatric Orientation: alert Lab Results Anesthesia Preop Results Results Anesthesia Widget: WBC 6.84 K/uL (4.8-10.8) 05/29/21 Hgb 11.0 g/dL (12.0-16.0) L 05/29/21 Hct 36.0 % (37-47) L 05/29/21 Plt 339 K/uL (130-400) 05/29/21 Na 138 mmol/L (136-145) 05/29/21 K 4.9 mmol/L (3.5-5.1) 05/29/21 Cl 103 mmol/L (98-107) 05/29/21 CO2 30 mmol/L (21-32) 05/29/21 BUN 22 mg/dl (6-23) 05/29/21 Creat 0.82 mg/dl (0.6-1.2) 05/29/21 Glucose Level 90 mg/dl (70-99(Fasting)) 05/29/21 PT 10.3 Seconds (9.0-12.0) 05/29/21 PTT 25.9 Seconds (21.0-31.0) 05/29/21 INR 1.0 (0.9-1.1) 05/29/21 Lab Comments: Chronic anemia - stable since 07/2020 Testing Electrocardiogram Date: 08/22/20 NSR at 89bpm. Normal ECG. Chest X-Ray Date: 08/22/20 FINDINGS: Lung volumes are normal. There is no pneumothorax or pleural effusion. Linear left basilar opacity reflects atelectasis or scarring. Cardiac size is at the upper limits of normal. There is no consolidation or evidence for pulmonary edema. The appearance of the chest is unchanged. Osteoarthritis of the shoulders is incidentally noted. IMPRESSION: No acute cardiopulmonary findings. No significant change in appearance of the chest. Stress Test Date: 03/13/16 Type: nuclear Walking pharmaceutical study. Technically quality of the study is poor. Lexiscan nuclear cardiac stress test negative for ischemia. EKG portion negative for ischemia. Small to medium sized fixed defect of mild intensity noted involving mid and basal lateral wall. In absence of regional wall motion abnormalities and corresponding segments, this is probably attenuation artifact. TID normal at 1.11. Gated SPECT images reveals normal myocardial thickening and wall motion. LV EF is 69% resting study and 80% post regadenoson study. Other Testing Head/Brain CT 01/29/21= No acute intracranial abnormality is identified. Nonspecific cerebral white matter areas of hypodensity, most commonly associated with chronic small vessel disease. Findings have progressed compared with the prior brain MRI dated 04/03/2012 given differences in technique. Chronic appearing lacunar infarction within the right thalamus, new from the prior MRI dated 2012.
--- NOTE | 2021-06-21 12:24 | History & Physical Report ---
Date of Service June 21, 2021 Assessment & Plan (1) Posterior tibial tendon dysfunction, right: Plan: Schedule a right triple arthrodesis, Perc ZOHREH, exostectomy dorsal talus for 06.22.21. All potential risks, benefits, complications, alternatives, and rehab have been discussed with the patient and she wishes to proceed. Plan for ASA 81 mg BID x 4 wks for post op DVT prophylaxis. (2) Acquired pes planovalgus of right foot: (3) Osteoarthritis of right hindfoot: (4) Contracture of right Achilles tendon: (5) Subfibular impingement of right lower extremity: History of Present Illness Chief Complaint: right foot pain Primary Care Provider: Tiffany Viral This is a patient with a long hx of right foot pain and deformity. She was treated conservatively for a flat foot deformity and hindfoot osteoarthritis. She has failed all conservative management and is now being set up for surgical tx. Allergies Allergy/AdvReac Type Severity Reaction Status Date / Time prednisone AdvReac Intermediate Syncope, Verified 05/23/21 11:35 lethargy Home Medications Medication Instructions Recorded Confirmed Type albuterol sulfate 90 mcg/actuation 1 inh INHALATION QID PRN 03/16/20 05/23/21 History aerosol inhaler aspirin 81 mg tablet 81 mg PO QAM 03/16/20 05/23/21 History fluticasone furoate 200 1 inh INHALATION QAM 03/16/20 05/23/21 History mcg-vilanterol 25 mcg/dose inhalation powder (Breo Ellipta) lisinopril 20 mg tablet 20 mg PO QAM 03/16/20 05/23/21 History omeprazole 20 mg capsule,delayed 20 mg PO QAM 03/16/20 05/23/21 History release ropinirole 3 mg tablet (Requip) 3 mg PO HS 03/16/20 05/23/21 History simvastatin 20 mg tablet 20 mg PO HS 03/16/20 05/23/21 History bupropion HCl 75 mg tablet 75 mg PO BID 08/23/20 05/23/21 History polyethylene glycol 3350 17 gram 17 g PO DAILY PRN #5 ea 08/25/20 05/23/21 Rx oral powder packet (Miralax) Past Med/Surg History Medical History (Updated 06/21/21 @ 12:21 by Jakub Byers PA-C) Chronic obstructive pulmonary disease Well controlled with Breo- rare rescue inhaler rare GERD (gastroesophageal reflux disease) Well controlled and stable History of anesthesia reaction EXCESS URINATION POST OP WITH LAST FOOT SURGERY [facility] Hyperlipidemia Hypertension Osteoporosis Restless leg syndrome Stable Stroke Found incidentally on 01/2021 CT scan of the head- no previous/known symptoms of CVA PCP aware- per records- patient on "ASA, statin, BP controlled" Urinary incontinence Ongoing UTI (urinary tract infection) Just finished antibiotic on 05/25/21 Following with urology Surgical History History of colonoscopy History of esophagogastroduodenoscopy (EGD) History of foot surgery [facility] 04/27/2020 History of laparotomy Ovarian cyst removal History of repair of rotator cuff LEFT History of tonsillectomy S/P hammer toe correction Left S/P knee replacement R/L Family History Other No family history of adverse response to anesthesia No known health problems Social History (Updated 05/23/21 @ 11:56 by Jeannette Brizuela RN) Smoking Status: Former smoker Second Hand Exposure: No; Hx Alcohol Use: Yes Alcohol type: hard liquor Hx Substance Use: No Preferred Language: Greek Communication Ability: Effective Psychiatric Nursing Aide Required: No Beliefs That Will Affect Care: None marital status: Current Living Situation: Alone current occupational status: retired Feels Safe at Home: Yes Assistive Devices: Denture - Upper, Denture - Lower, Glasses and Walker Physical Exam Constitutional: well developed and well nourished; no acute distress ENMT: external ear and nose normal, oropharynx normal Neck: trachea midline Respiratory: normal respiratory effort, lungs clear to auscultation Cardiovascular: Rate/Rhythm: regular rate and regular rhythm Gastrointestinal (Abdomen): normal bowel sounds, soft, nontender, no hepatosplenomegaly Musculoskeletal: Ankle: + deformity (right pes planovalgus), + limited ROM of ankle (right inversion/eversion) and + joint line tenderness (ankle) (right sinus tarsi, talonavicular); no skin erythema and no ecchymosis Skin: no rashes, warm and dry Trauma: no evidence of skin trauma Neurologic: normal touch/pain/proprioception Psychiatric: A+Ox3, euthymic affect Speech: normal rate/rhythm/volume of speech Lymphatic: no cervical or axillary lymphadenopathy
[~2021-06-22 08:15] MED LIST changes: -ACETAMINOPHEN 500 MG TAB PO SCH; -BUPIVACAINE 0.5 % 5 MG/1 ML PF 10ML VIAL ONE; -CeleBREX 200 MG CAP PO SCH; -FAMOTIDINE 20 MG TAB PO SCH; -GABAPENTIN 300 MG CAP PO SCH; +ROPIVACAINE 0.5% 5 MG/ML 30 ML VIAL ONE; -ROPIVACAINE 0.5% HCL/PF 150 MG, BUPIVACAINE 0.75% MPF 20 ML, EPINEPHrine 30MG/30ML (OR ... INSTIL SCH; -TRANEXAMIC ACID 1,000 MG **IV Intra-op IV SCH; -TRANEXAMIC ACID 1,000 MG **IV Pre-op IV SCH; -dexAMETHasone 4 MG TAB PO SCH; -oxyCODONE HCL 10 MG TABCR (OxyCONTIN) PO SCH
[2021-06-22] MEDS ORDERED: MIDAZOLAM HCL 1 MG/ML 2ML VIAL ONE (09:26)
[2021-06-22] MEDS ORDERED: fentaNYL citrate 100 MCG/2 ML VIAL ONE ×2 (09:26→11:51)
--- NOTE | 2021-06-22 10:34 | History & Physical Bridge Note ---
Date of Service June 22, 2021 History & Physical Bridge Note I have examined the patient, reviewed the History & Physical and in the interval since the performance of the History & Physical I have noted the following changes of clinical significance: no changes noted
[2021-06-22] MEDS ORDERED: PROPOFOL IV EMULSION 10 MG/ML 20 ML VIAL IV ONE (11:12)
[2021-06-22] MEDS ORDERED: ONDANSETRON INJ 2 MG/ML 2 ML VIAL ONE ×2 (11:12→14:21)
[2021-06-22] MEDS ORDERED: LIDOCAINE 2% 2 ML VIAL/AMP(20MG/ML) INFIL ONE (11:12)
[2021-06-22] MEDS ORDERED: ceFAZolin 330 MG/ML 1 GM VIAL ONE (11:45)
[2021-06-22] MEDS ORDERED: LABETALOL HCL IV 5 MG/ML 20ML IV ONE ×4 (13:13)
[2021-06-22] MEDS ORDERED: MoRPHine SULFATE 2 MG/ML CARP ONE (13:20)
--- NOTE | 2021-06-22 13:57 | Post Operative Brief Note ---
Immediate Post Op Note v1 Date of Surgery June 22, 2021 Pre & Post Diagnosis Operation Date: 06/22/21 10:15 Pre-Op Diagnosis: Acquired painful pes planovalgus of right foot, Osteoarthritis of right hindfoot, Contracture of right Achilles tendon, exostosis dorsal talus, subfibular impingement of right lower extremity Post-Op Diagnosis: Acquired painful pes planovalgus of right foot, Osteoarthritis of right hindfoot, Contracture of right Achilles tendon, exostosis dorsal talus, subfibular impingement of right lower extremity I identified the patient and participated in the time-out.: Yes Procedure Operation Date: 06/22/21 10:15 Actual Procedures p Right Ankle: 1. Triple Arthrodesis, 2. Percutaneous Tendon Achilles Lengthening, 3. Exostectomy Dorsal Talus(Right) - Lavon Hodge DO Surgeon Lavon Hodge DO Warehouse Puller Dickson Merino PA-C Estimated Blood Loss 15 Findings Consistent with Post-Op Diagnosis Drains Benedict Catheter (at start of procedure 16 icelandic benedict iserted by Leann Quinn RN urine output monitored by anesthesia. Discontinued at end of case.) Anesthesia Type General Regional Complications none Disposition Accompanied Patient To Recovery: No Overlapping Procedure I was present for: the critical portions of procedure. I was immediately available: during the entire case.
--- NOTE | 2021-06-22 14:09 | Fluoroscopy Report ---
FL ankle RT min 3V RTN CLINICAL HISTORY: Status post triple arthrodesis COMPARISON STUDY: None FLUOROSCOPY TIME: 40 seconds. FLUOROSCOPIC IMAGES: 2 FINDINGS: Cancellus screws are seen status post triple arthrodesis. IMPRESSION: Status post triple arthrodesis. ACT 112: Negative or not required by law. Electronically signed by: Mickey Corley M.D. 06/22/2021 2:08 PM
[2021-06-22] MEDS ORDERED: ePHEDrine sulfate 50 MG/ML AMP IV PRN (14:20)
[2021-06-22] MEDS ORDERED: ATROPINE SULFATE 0.1 MG/ML 10ML SYR IV PRN (14:20)
[2021-06-22] MEDS ORDERED: fentaNYL citrate 100 MCG/2 ML VIAL IV PRN (14:20)
[2021-06-22] MEDS ORDERED: ONDANSETRON INJ 2 MG/ML 2 ML VIAL IV PRN (14:20)
[2021-06-22] MEDS ORDERED: MAGNESIUM HYDROXIDE SUSP 30 ML UDC PO PRN (15:12)
[2021-06-22] MEDS ORDERED: bisacodyL 10 MG SUPP PR PRN (15:12)
[2021-06-22] MEDS ORDERED: NALOXONE HCL 0.4 MG/1 ML VIAL/CARP IV PRN (15:12)
[2021-06-22] MEDS ORDERED: ALBUTEROL HFA 8 GM INHALER INH PRN (15:12)
[2021-06-22] MEDS: oxyCODONE HCL IR 5 MG TAB (IMMEDIATE RELEASE) PO PRN ×2 (16:01→20:07)
[2021-06-22] MEDS: ACETAMINOPHEN 500 MG TAB PO SCH ×2 (16:05→22:55)
--- NOTE | 2021-06-22 16:29 | Operative Report (OR) ---
DATE OF PROCEDURE: 06/22/2021. PREOPERATIVE DIAGNOSES: 1. Right painful acquired pes planus deformity. 2. Osteoarthritis of the right hindfoot. 3. Exostosis of the dorsal talus. 4. Achilles tendon contracture. 5. Subfibular impingement. POSTOPERATIVE DIAGNOSES: 1. Right painful acquired pes planus deformity. 2. Osteoarthritis of the right hindfoot. 3. Exostosis of the dorsal talus. 4. Achilles tendon contracture. 5. Subfibular impingement. PROCEDURES: 1. Right triple arthrodesis with autograft. 2. Exostectomy of the dorsal talus. 3. Percutaneous tendo-Achilles lengthening. SURGEON: Lavon Hodge DO. RN ELIGIBILITY: Dickson Merino PA-C who was present for patient positioning, sterile prep and drape, management of retractors and instruments. He was present through the critical portions of the case including wound closure, application of sterile dressing and transport of the patient to recovery. ANESTHESIA: General, regional. SPECIMENS: None. DRAINS: None. COMPLICATIONS: None. BLOOD LOSS: 15 mL. PERTINENT HISTORY: This is a 76-year-old woman who has had chronic progressive and worsening painful deformity of her right foot, which has limited her ability to ambulate and limited her ability to perform activities of daily living. The patient has attempted and failed physical therapy, physician-directed home exercises, use of brace, use of an assistive device, anti-inflammatories, rest, and observation. Radiographs demonstrate severe hindfoot osteoarthritis including the subtalar joint, calcaneocuboid joint and talonavicular joints with pes planovalgus and subfibular impingement of the right lower extremity. The patient was scheduled for surgery as indicated. All potential risks, benefits, complications, alternatives, rehab, potential for incomplete relief of symptoms, need for further surgery, DVT, PE, , persistent pain, swelling, scarring, weakness, neurovascular injury, wound complications, hardware failure, nonunion, malunion, bone fracture were discussed with the patient. The patient decided to proceed with the procedure as indicated. DESCRIPTION OF PROCEDURE: The patient was taken to the Operating Suite, placed supine on the Operating Room table, after consent and identification of the proper operative site, the patient was anesthetized. LMA was placed. Tourniquet was placed high on the left lower extremity. Right lower extremity was then sterilely prepped and draped in the usual fashion. Exsanguinated with an Esmarch bandage and tourniquet inflated to 350 mmHg. Next, the foot was held in dorsiflexion and a three-part percutaneous incision was made with an 11-blade scalpel to lengthen the Achilles tendon using standard technique. Next, the stab incisions were then closed using interrupted skin janes. Next, the 15-blade scalpel was used to make an incision from the distal aspect of the fibula to the base of the fourth metatarsal. The incision was deepened through subcutaneous tissue and meticulous hemostasis was obtained with electrocautery. Subcutaneous nerves were identified, retracted and protected. The extensor digitorum brevis was identified and was sharply elevated from the anterior process of the calcaneus revealing the sinus tarsi. Next, the sinus tarsi was debrided carefully with a rongeur and 15-blade scalpel. A cervical lamina sander operator was placed in the sinus tarsi opening the subtalar joint. Subtalar joint was then prepared with the use of a curette and rongeur to resect the articular surfaces down to subchondral bleeding bone. Irrigation was performed with sterile normal saline and then 2-mm drill bit was used to further prepare the joint surface with multiple drill holes in both surfaces of the subtalar joint and a small osteotome and mallet were used to fish scale the joint surfaces to increase surface area and bleeding. Next, the calcaneocuboid joint was then entered with the 15-blade scalpel, debrided of soft tissue and then a lamina sander operator was placed in the joint opening it for preparation with a curette and rongeur to remove any articular surface down to subchondral bleeding bone. Next, the 2-mm drill bit was used to further prepare the joint with multiple drill holes into the joint and then a small osteotome and mallet were used to fish scale the joint. Next, the 15-blade was used to make an incision from the distal aspect of the tibia to the base of the naviculocuneiform joint. The incision was deepened through subcutaneous tissue. Meticulous hemostasis obtained with electrocautery. A Weitlaner retractor was placed in the wound. The greater saphenous vein was identified, retracted and protected. The capsule of the talonavicular joint was then entered sharply with a 15-blade scalpel and elevated both superior and inferiorly. A small Dee Dee was placed on the neck of the talus and further soft tissue elevation was performed with the 15-blade scalpel until the talonavicular joint was clearly visualized. A large exostosis was noted of the dorsal talus. Exostectomy of the dorsal talus was then performed with a large rongeur, 10 mm osteotome and mallet. The fragments were removed with a rongeur. The talonavicular joint articular surface was then debrided with curette and rongeur and a cervical lamina sander operator was placed in the joint. Next, it was irrigated with sterile normal saline and a 2-mm drill bit was used to make multiple holes in the joint surfaces and fish scaling was performed with a small osteotome and mallet. Next, the medial and lateral incisions were irrigated with sterile normal saline and the joint surfaces were then aligned appropriately based on alignment of the lower extremity and the kneecap. Subtalar joint was aligned and then a 7.3-mm cannulated guidepin was driven from the superior aspect of the talus across the subtalar joint into the calcaneus under fluoroscopic control. Next, an appropriate length 7.3-mm short-thread screw was placed under fluoroscopic control and countersunk slightly. Next, the guidepin was removed. Next, 2.25-mm guidepins x 2 were used to stabilize the talonavicular joint in appropriate alignment and then the calcaneocuboid joint was then stabilized with appropriate alignment under fluoroscopic control. Next, appropriate length of 7.3-mm short-thread and long thread cannulated screws were placed across the talonavicular and calcaneocuboid joints respectively under fluoroscopic control. All guidepins were removed. Wounds were irrigated with sterile normal saline and autograft bone graft was then packed in and around the subtalar, talonavicular and calcaneocuboid joints. The extensor digitorum brevis then closed back to its origin with interrupted 2-0 Vicryl sutures. The talonavicular joint capsule was closed using 2-0 Vicryl sutures. The dermis was closed using buried interrupted 3-0 Vicryl sutures medially and laterally and then skin incisions were closed using 4-0 Nylon sutures. A sterile compressive dressing and bulky Raghu-Chapin plaster splint was applied, overwrapped with an Ted wrap. The tourniquet was released. DISPOSITION: Patient awakened and taken to Recovery in stable condition. [facility] ID: [id number] [facility]
[2021-06-22] MEDS: SODIUM CHLORIDE 0.9% 1000ML 1,000 ML IV SCH (16:40)
[2021-06-22] MEDS: ceFAZolin 2000MG 2,000 MG/15 ML SYR IV SCH (18:04)
[2021-06-22] MEDS: ONDANSETRON INJ 2 MG/ML 2 ML VIAL IV PRN (18:49)
[2021-06-22] MEDS: ASPIRIN 81 MG ECTAB PO SCH (20:08)
[2021-06-22] MEDS: DOCUSATE SODIUM 100 MG CAP PO SCH (20:08)
[2021-06-22] MEDS: buPROPion HCl 75 MG TABLET PO SCH (20:08)
[2021-06-22] MEDS: SIMVASTATIN 20 MG TAB PO SCH (20:08)
[2021-06-22] MEDS: rOPINIRole HCL 1 MG TABLET PO SCH (20:09)
[2021-06-23] MEDS: ceFAZolin 2000MG 2,000 MG/15 ML SYR IV SCH (01:56)
[2021-06-23] MEDS: SODIUM CHLORIDE 0.9% 1000ML 1,000 ML IV SCH (02:37)
[2021-06-23] MEDS: HYDROmorphone INJ 0.5 MG/0.5 ML SYR IV PRN ×2 (02:37→09:07)
[2021-06-23] MEDS: ONDANSETRON INJ 2 MG/ML 2 ML VIAL IV PRN ×2 (02:37→09:08)
[2021-06-23] MEDS: ACETAMINOPHEN 500 MG TAB PO SCH ×3 (06:21→22:16)
[2021-06-23] MEDS: oxyCODONE HCL IR 5 MG TAB (IMMEDIATE RELEASE) PO PRN ×4 (06:21→20:49)
[2021-06-23 06:28] LABS: Hematocrit (blood only) 30.1 % (37-47); Hemoglobin 9.3 g/dL (12.0-16.0); Mean Corpuscular Hemoglobin 27.1 pg (25-34); Mean Corpuscular Hgb Conc 30.9 g/dL (32-36); Mean Corpuscular Volume 87.8 fL (80-100); Mean Platelet Volume 9.2 fL (7.4-10.4); Platelet Count 224 K/uL (130-400); RDW Coefficient of Variation 15.8 % (11.5-14.5); RDW Standard Deviation 50.7 fL (36.4-46.3); Red Blood Count 3.43 M/uL (4.2-5.4); White Blood Count 8.42 K/uL (4.8-10.8)
[2021-06-23 06:57] LABS: BUN Creatinine Ratio 16.2 (10-20); Calcium 7.9 mg/dl (8.5-10.1); Creatinine Clr Calc Pharmacy 68.8 ml/min; Est GFR (African American) 91.9 ml/min; Est GFR (Non-African American) 79.3 ml/min; Potassium 4.2 mmol/L (3.5-5.1)
[2021-06-23] MEDS: ASPIRIN 81 MG ECTAB PO SCH ×2 (09:08→20:51)
[2021-06-23] MEDS: MULTIVITAMIN TAB PO SCH (09:08)
[2021-06-23] MEDS: lisinopril 20 MG TAB PO SCH (09:08)
[2021-06-23] MEDS: buPROPion HCl 75 MG TABLET PO SCH ×2 (09:08→20:50)
[2021-06-23] MEDS: DOCUSATE SODIUM 100 MG CAP PO SCH ×2 (09:08→20:51)
[2021-06-23] MEDS: FLUTICASONE/VILANTEROL 200/25MCG 14 PUFFS/INHALER INH SCH (09:08)
--- NOTE | 2021-06-23 11:36 | Orthopedic Progress Note ---
Date of Service June 23, 2021 Assessment & Plan (1) Posterior tibial tendon dysfunction, right: Plan: POD #1 s/p 1. Right triple arthrodesis with autograft. 2. Exostectomy of the dorsal talus. 3. Percutaneous tendo-Achilles lengthening. PT/OTnonweightbearing right lower extremity at all times. DVT prophylaxisaspirin 81 mg twice daily x30 days. Pain controloral oxycodone and Tylenol, IV Dilaudid for severe pain. Discharge planningthe patient was able to get to a bedside commode this morning, however it took 3 people assisting She will require a fdc facility stay. If accepted to [facility], will discharge in the next 1 to 2 days to the nursing facility. (2) Acquired pes planovalgus of right foot: (3) Osteoarthritis of right hindfoot: (4) Contracture of right Achilles tendon: (5) Subfibular impingement of right lower extremity: Admission and Anticipated Discharge Date Admission Date: June 22, 2021 Subjective Patient states the right foot and ankle are quite sore today. The pain is overall controlled. She is nauseous this morning and having difficulties keeping any drink down despite having an appetite. She states she is drinking some emmett sophie and is kept a little bit of it down. Denies chest pain, shortness of breath, lightheadedness. She states her plan is to go to [facility] upon discharge if approved. Physical Exam Constitutional: well developed and well nourished; no acute distress ENMT: external ear and nose normal, oropharynx normal Neck: trachea midline Respiratory: normal respiratory effort, lungs clear to auscultation Cardiovascular: Rate/Rhythm: regular rate and regular rhythm Gastrointestinal (Abdomen): normal bowel sounds, soft, nontender, no hepatosplenomegaly Musculoskeletal: Ankle: + surgical incision (Right ankle splint C/D/I) and + limited ROM of ankle (Active motion of the toes intact); no skin erythema and no ecchymosis Skin: no rashes, warm and dry Trauma: no evidence of skin trauma Neurologic: normal touch/pain/proprioception Psychiatric: A+Ox3, euthymic affect Speech: normal rate/rhythm/volume of speech Lymphatic: no cervical or axillary lymphadenopathy Results & Data ([facility]) Vital Signs (Past 12 Hours) Vital Signs Temp Pulse Resp BP Pulse Ox Pulse Ox Pulse Ox 06/23/21 10:37 95 06/23/21 10:33 97 97 06/23/21 07:46 36.6 C 72 16 129/67 96 06/23/21 02:39 36.5 C 83 17 156/77 H 97 Pulse Ox 06/23/21 10:37 06/23/21 10:33 95 06/23/21 07:46 06/23/21 02:39
[2021-06-23] MEDS: PANTOprazole 40 MG TAB PO SCH (20:50)
[2021-06-23] MEDS: rOPINIRole HCL 1 MG TABLET PO SCH (20:51)
[2021-06-23] MEDS: SIMVASTATIN 20 MG TAB PO SCH (20:51)
[2021-06-24] MEDS: oxyCODONE HCL IR 5 MG TAB (IMMEDIATE RELEASE) PO PRN ×4 (05:37→20:27)
[2021-06-24] MEDS: ACETAMINOPHEN 500 MG TAB PO SCH ×3 (05:38→22:40)
[2021-06-24] MEDS: DOCUSATE SODIUM 100 MG CAP PO SCH ×2 (08:09→20:28)
[2021-06-24] MEDS: lisinopril 20 MG TAB PO SCH (08:09)
[2021-06-24] MEDS: buPROPion HCl 75 MG TABLET PO SCH ×2 (08:09→20:28)
[2021-06-24] MEDS: ASPIRIN 81 MG ECTAB PO SCH ×2 (08:09→20:28)
[2021-06-24] MEDS: FLUTICASONE/VILANTEROL 200/25MCG 14 PUFFS/INHALER INH SCH (08:09)
[2021-06-24] MEDS: MULTIVITAMIN TAB PO SCH (08:10)
[2021-06-24] MEDS: PANTOprazole 40 MG TAB PO SCH (08:10)
--- NOTE | 2021-06-24 08:34 | Orthopedic Progress Note ---
Date of Service June 24, 2021 Assessment & Plan (1) Posterior tibial tendon dysfunction, right: Plan: POD #2 s/p 1. Right triple arthrodesis with autograft. 2. Exostectomy of the dorsal talus. 3. Percutaneous tendo-Achilles lengthening. PT/OTnonweightbearing right lower extremity at all times. DVT prophylaxisaspirin 81 mg twice daily x30 days. Pain controloral oxycodone and Tylenol, IV Dilaudid for severe pain. Discharge planningreferrals into [facility] for a rehabilitation stay. The earliest the patient would discharge is tomorrow. (2) Acquired pes planovalgus of right foot: (3) Osteoarthritis of right hindfoot: (4) Contracture of right Achilles tendon: (5) Subfibular impingement of right lower extremity: Admission and Anticipated Discharge Date Admission Date: June 22, 2021 Subjective Nausea significantly better today. She was able to eat last evening without any issues. Still having pain within the ankle and foot. Pain is controlled with current medications. Denies chest pain, shortness of breath, lightheadedness. Case management has referrals into [facility] in [place]. Physical Exam Constitutional: well developed and well nourished; no acute distress ENMT: external ear and nose normal, oropharynx normal Neck: trachea midline Respiratory: normal respiratory effort, lungs clear to auscultation Cardiovascular: Rate/Rhythm: regular rate and regular rhythm Gastrointestinal (Abdomen): normal bowel sounds, soft, nontender, no hepatosplenomegaly Musculoskeletal: Ankle: + surgical incision (Right ankle splint C/D/I) and + limited ROM of ankle (Active motion of the toes intact); no skin erythema and no ecchymosis Skin: no rashes, warm and dry Trauma: no evidence of skin trauma Neurologic: normal touch/pain/proprioception Psychiatric: A+Ox3, euthymic affect Speech: normal rate/rhythm/volume of speech Lymphatic: no cervical or axillary lymphadenopathy Results & Data ([facility]) Vital Signs (Past 12 Hours) Vital Signs Temp Pulse Resp BP Pulse Ox 06/24/21 07:39 36.8 C 69 18 120/71 98 06/23/21 21:57 36.8 C 81 18 130/71 95
[2021-06-24] MEDS: rOPINIRole HCL 1 MG TABLET PO SCH (20:28)
[2021-06-24] MEDS: SIMVASTATIN 20 MG TAB PO SCH (20:28)
[2021-06-25] MEDS: ACETAMINOPHEN 500 MG TAB PO SCH ×3 (06:17→21:18)
[2021-06-25] MEDS: oxyCODONE HCL IR 5 MG TAB (IMMEDIATE RELEASE) PO PRN ×3 (08:12→19:37)
[2021-06-25] MEDS: PANTOprazole 40 MG TAB PO SCH (08:13)
[2021-06-25] MEDS: FLUTICASONE/VILANTEROL 200/25MCG 14 PUFFS/INHALER INH SCH (08:13)
[2021-06-25] MEDS: lisinopril 20 MG TAB PO SCH (08:13)
[2021-06-25] MEDS: MULTIVITAMIN TAB PO SCH (08:13)
[2021-06-25] MEDS: buPROPion HCl 75 MG TABLET PO SCH ×2 (08:14→21:12)
[2021-06-25] MEDS: ASPIRIN 81 MG ECTAB PO SCH ×2 (08:14→21:12)
[2021-06-25] MEDS: DOCUSATE SODIUM 100 MG CAP PO SCH ×2 (08:14→21:11)
[2021-06-25] MEDS: ONDANSETRON INJ 2 MG/ML 2 ML VIAL IV PRN (11:48)
--- NOTE | 2021-06-25 14:47 | Orthopedic Progress Note ---
Date of Service June 25, 2021 Assessment & Plan (1) Posterior tibial tendon dysfunction, right: Plan: POD #3 s/p 1. Right triple arthrodesis with autograft. 2. Exostectomy of the dorsal talus. 3. Percutaneous tendo-Achilles lengthening. PT/OTnonweightbearing right lower extremity at all times. DVT prophylaxisaspirin 81 mg twice daily x30 days. Pain controloral oxycodone and Tylenol, IV Dilaudid for severe pain. Discharge planningreferrals into [facility] nursing [facility] for a rehabilitation stay. Case management has not heard from [facility] at this time and [place] was in touch with case management and they are reviewing her case and will later need insurance authorization. At the earliest, the patient will be discharged tomorrow. (2) Acquired pes planovalgus of right foot: (3) Osteoarthritis of right hindfoot: (4) Contracture of right Achilles tendon: (5) Subfibular impingement of right lower extremity: Admission and Anticipated Discharge Date Admission Date: June 22, 2021 Subjective Doing well today. States the pain is controlled with the pain medications. He is currently working with PT for nonweightbearing status. Physical Exam Constitutional: well developed and well nourished; no acute distress ENMT: external ear and nose normal, oropharynx normal Neck: trachea midline Respiratory: normal respiratory effort, lungs clear to auscultation Cardiovascular: Rate/Rhythm: regular rate and regular rhythm Gastrointestinal (Abdomen): normal bowel sounds, soft, nontender, no hepatosplenomegaly Musculoskeletal: Ankle: + surgical incision (Right ankle splint C/D/I) and + limited ROM of ankle (Active motion of the toes intact); no skin erythema and no ecchymosis Skin: no rashes, warm and dry Trauma: no evidence of skin trauma Neurologic: normal touch/pain/proprioception Psychiatric: A+Ox3, euthymic affect Speech: normal rate/rhythm/volume of speech Lymphatic: no cervical or axillary lymphadenopathy Results & Data ([facility]) Vital Signs (Past 12 Hours) Vital Signs Temp Pulse Resp BP Pulse Ox 06/25/21 07:40 36.7 C 77 18 130/73 95
[2021-06-25] MEDS: POLYETHYLENE (MIRALAX) 17 GM PACK PO PRN (19:36)
[2021-06-25] MEDS: rOPINIRole HCL 1 MG TABLET PO SCH (21:12)
[2021-06-25] MEDS: SIMVASTATIN 20 MG TAB PO SCH (21:12)
[2021-06-26] MEDS: oxyCODONE HCL IR 5 MG TAB (IMMEDIATE RELEASE) PO PRN ×4 (04:15→20:27)
[2021-06-26] MEDS: ACETAMINOPHEN 500 MG TAB PO SCH ×3 (06:01→22:24)
[2021-06-26] MEDS: FLUTICASONE/VILANTEROL 200/25MCG 14 PUFFS/INHALER INH SCH (09:07)
[2021-06-26] MEDS: DOCUSATE SODIUM 100 MG CAP PO SCH ×2 (09:07→20:21)
[2021-06-26] MEDS: ASPIRIN 81 MG ECTAB PO SCH ×2 (09:07→20:22)
[2021-06-26] MEDS: buPROPion HCl 75 MG TABLET PO SCH ×2 (09:07→20:22)
[2021-06-26] MEDS: MULTIVITAMIN TAB PO SCH (09:08)
[2021-06-26] MEDS: lisinopril 20 MG TAB PO SCH (09:08)
[2021-06-26] MEDS: PANTOprazole 40 MG TAB PO SCH (09:08)
--- NOTE | 2021-06-26 12:12 | Orthopedic Progress Note ---
Date of Service June 26, 2021 Assessment & Plan (1) Posterior tibial tendon dysfunction, right: Plan: POD #4 s/p 1. Right triple arthrodesis with autograft. 2. Exostectomy of the dorsal talus. 3. Percutaneous tendo-Achilles lengthening. PT/OTnonweightbearing right lower extremity at all times. DVT prophylaxisaspirin 81 mg twice daily x30 days. Pain controloral oxycodone and Tylenol, IV Dilaudid for severe pain. Discharge planningreferral into [facility] for a rehabilitation stay. [facility] has no beds available at this time. (2) Acquired pes planovalgus of right foot: (3) Osteoarthritis of right hindfoot: (4) Contracture of right Achilles tendon: (5) Subfibular impingement of right lower extremity: Admission and Anticipated Discharge Date Admission Date: June 22, 2021 Subjective Postop day 4 Patient was just helped up to her chair at the bedside by nursing staff. Having some discomfort when pressure is applied to the heel and or Achilles tendon area. No other complaints while at rest. Pain appears controlled at rest. Patient states she is waiting to get into a senior living facility. Physical Exam Physical Exam: Bulky dressing on her lower extremity is clean, dry, and intact. Toes are mobile. Sensation intact. Results & Data ([facility]) Vital Signs (Past 12 Hours) Vital Signs Temp Pulse Resp BP Pulse Ox 06/26/21 07:42 36.6 C 76 16 136/66 96
[2021-06-26] MEDS: POLYETHYLENE (MIRALAX) 17 GM PACK PO PRN (20:21)
[2021-06-26] MEDS: SIMVASTATIN 20 MG TAB PO SCH (20:22)
[2021-06-26] MEDS: rOPINIRole HCL 1 MG TABLET PO SCH (20:22)
[2021-06-27] MEDS: oxyCODONE HCL IR 5 MG TAB (IMMEDIATE RELEASE) PO PRN (05:59)
[2021-06-27] MEDS: ACETAMINOPHEN 500 MG TAB PO SCH ×2 (05:59→13:08)
[2021-06-27] MEDS: MULTIVITAMIN TAB PO SCH (07:59)
[2021-06-27] MEDS: buPROPion HCl 75 MG TABLET PO SCH (07:59)
[2021-06-27] MEDS: PANTOprazole 40 MG TAB PO SCH (07:59)
[2021-06-27] MEDS: ASPIRIN 81 MG ECTAB PO SCH (07:59)
[2021-06-27] MEDS: DOCUSATE SODIUM 100 MG CAP PO SCH (07:59)
[2021-06-27] MEDS: FLUTICASONE/VILANTEROL 200/25MCG 14 PUFFS/INHALER INH SCH (07:59)
[2021-06-27] MEDS: lisinopril 20 MG TAB PO SCH (07:59)
--- NOTE | 2021-06-27 11:45 | Orthopedic Progress Note ---
Date of Service June 27, 2021 Assessment & Plan (1) Posterior tibial tendon dysfunction, right: Plan: POD #5 s/p 1. Right triple arthrodesis with autograft, Exostectomy of the dorsal talus, Percutaneous tendo-Achilles lengthening PT/OTnonweightbearing right lower extremity at all times. DVT prophylaxisaspirin 81 mg twice daily x30 days. Pain controloral oxycodone and Tylenol, IV Dilaudid for severe pain. Discharge planningreferral into Health system for a rehabilitation stay. transfer today (2) Acquired pes planovalgus of right foot: (3) Osteoarthritis of right hindfoot: (4) Contracture of right Achilles tendon: (5) Subfibular impingement of right lower extremity: Admission and Anticipated Discharge Date Admission Date: June 22, 2021 Subjective Postop day 5 denies CP/SOB, denies fever/chills, no N/V. pain currently well controlled. Physical Exam Physical Exam: Vital Signs Temp Pulse Pulse Resp BP Pulse Ox 06/27/21 07:52 36.4 C L 80 16 109/61 93 06/26/21 23:29 36.7 C 83 18 163/79 H 93 06/26/21 15:34 36.7 C 68 16 132/75 97 Intake and Output 06/26/21 06/27/21 06/27/21 22:59 06:59 14:59 Other: # Unmeasured Voi ds 2 2 Bulky dressing on her lower extremity is clean, dry, and intact. Toes are mobile. Sensation intact. Results & Data ([facility]) Vital Signs (Past 12 Hours) Vital Signs Temp Pulse Resp BP Pulse Ox 06/27/21 07:52 36.4 C L 80 16 109/61 93
--- NOTE | 2021-06-29 07:10 | Anesthesiology Progress Note ---
Date of Service June 29, 2021 Anesthesia Post Procedure Pain Intensity Right Ankle: Pain Intensity: 0 Transfer of Care Handoff Completed per policy Notes Mental Status: alert / awake / arousable and participated in evaluation Patient Amnestic to Procedure: Yes Nausea / Vomiting: adequately controlled Pain: adequately controlled Airway Patency, RR, SpO2: stable & adequate BP & HR: stable & adequate Hydration State: stable & adequate Anesthetic Complications: no major complications apparent and Pt Satisfied with anesthetic care
--- NOTE | 2021-06-29 10:33 | Discharge Summary ---
Date of Service June 29, 2021 Admission HPI Per Admitting Provider This is a patient with a long hx of right foot pain and deformity. She was treated conservatively for a flat foot deformity and hindfoot osteoarthritis. She has failed all conservative management and is now being set up for surgical tx. Admission Exam Per Admitting Provider Physical Exam Constitutional: well developed and well nourished; no acute distress ENMT: external ear and nose normal, oropharynx normal Neck: trachea midline B Respiratory: normal respiratory effort, lungs clear to auscultation Cardiovascular: Rate/Rhythm: regular rate and regular rhythm Gastrointestinal (Abdomen): normal bowel sounds, soft, nontender, no hepatosplenomegaly Musculoskeletal: Ankle: + deformity (right pes planovalgus), + limited ROM of ankle (right inversion/eversion) and + joint line tenderness (ankle) (right sinus tarsi, talonavicular); no skin erythema and no ecchymosis Skin: no rashes, warm and dry Trauma: no evidence of skin trauma Neurologic: normal touch/pain/proprioception Psychiatric: A+Ox3, euthymic affect Speech: normal rate/rhythm/volume of speech Lymphatic: no cervical or axillary lymphadenopathy Principal Diagnosis Hind foot osteoarthritis Discharge Data Allergies Allergy/AdvReac Type Severity Reaction Status Date / Time prednisone AdvReac Intermediate Syncope, Verified 06/22/21 08:48 lethargy Procedures Performed Operation Date: 06/22/21 10:15 Actual Procedures p Right Ankle: Triple Arthrodesis with Percutaneous Tendon Achilles Lenghtening, Extostectomy Dorsal Talus(Right) - Lavon Hodge, Ordered Studies 06/22/21 10:15 FL ankle RT 2V Routine 06/22/21 10:42 US - OR guided needle placemen Routine Hospital Course (1) Osteoarthritis of right hindfoot: Patient is a 76-year-old female who was admitted on the above-noted date and had the above-noted surgery performed which she tolerated well.On her first postoperative day she was having some soreness of the foot and ankle. Pain was controlled overall. She was having some nausea that morning and had a decreased appetite. She was started on PT and OT protocols nonweightbearing right lower extremity, DVT prophylaxis and continued on pain control. It was felt the patient requires group home facility post discharge and case management was consulted and begin arrangements. By her second postoperative day, her nausea was significantly better. She was eating more. Continue to have pain off and on in the operative area but was controlled with pain medications. Over the next several days, case management continue to pursue several different options for group home facility. [facility] and authorization was sent. A bed was available. She was continue remain medically stable as well as orthopedically stable and by 06/27/2021, it was felt she can be transferred to [facility] [place] for further care. Total Time Total Time Spent Total Time Spent (In Minutes): 10 Discharge Plan Discharge Items Patient Disposition: Transfer Alf Fac Reason For Visit: Right Ankle Posterior Tendon Dysfunction, [place] Discharge Diagnosis: 1. Right painful acquired pes planus deformity. 2. Osteoarthritis of the right hindfoot. 3. Exostosis of the dorsal talus. 4. Achilles tendon contracture. 5. Subfibular impingement. Activity: Resume your previous activity Weightbearing: Right non-weightbearing Weightbearing Comment: Nonweightbearing right foot with walker Non-emergency contact: Surgeon Call non-emergency contact if: your pain is not controlled, your temperature is above 101.5, your wound has increased redness and your wound has increased drainage Follow-up/Referrals: Lavon Hodge DO [Surgeon] - (Follow up with Dr Hodge or Jakub Moon in 14 days. ) Tiffany Stratton PA-C [Primary Care Provider] - Diet: Regular Addtl Attending Provider Instructions: ACTIVITY RECOMMENDATIONS: Limitations: No weight bearing to affected limb at all times. SPECIAL CARE INSTRUCTIONS: * Some drainage onto the dressing is normal and is no cause for alarm. * Some swelling is natural especially after walking. * When resting, keep your foot elevated above the level of your heart. * Call [facility] if you notice: -Increased drainage -Fever over 101 degrees F -Severe constant pain BANDAGE: * Leave bandage/cast in place unless otherwise directed. * Keep bandage/cast dry at all times. FOLLOW UP VISIT WITH DR. HODGE If appointment is not already scheduled: Please call [facility] after you get home today to schedule a follow-up appointment for [address] Hodge at . Pending Studies at Discharge: No Stand-Alone Forms: My [facility] Skilled Items Patient informed of condition?: Yes DNR: No Discharge Level of Care: Skilled Communicable Disease: No Discharge Prognosis: Stable Lines: None Urinary Catheter: No Medications and DC Order Prescriptions: New acetaminophen [Tylenol Extra Strength] 500 mg Tablet 1,000 mg PO Q8 14 Days Qty: 84 RF: 0 aspirin 81 mg Tablet,Delayed Release (Dr/Ec) 81 mg PO BID 30 Days Qty: 60 RF: 0 oxycodone 5 mg Tablet 5 - 10 mg PO Q6H PRN (Reason: pain) Qty: 30 RF: 0 Continued lisinopril 20 mg Tablet 20 mg PO QAM RF: 0 ropinirole [Requip] 3 mg Tablet 3 mg PO HS RF: 0 simvastatin 20 mg Tablet 20 mg PO HS RF: 0 omeprazole 20 mg Capsule,Delayed Release(Dr/Ec) 20 mg PO QAM RF: 0 Breo Ellipta 200-25 mcg/dose Blister With Device 1 inh INHALATION QAM RF: 0 albuterol sulfate 90 mcg/actuation Hfa Aerosol Inhaler 1 inh INHALATION QID PRN (Reason: sob) RF: 0 bupropion HCl 75 mg Tablet 75 mg PO BID RF: 0 polyethylene glycol 3350 [Miralax] 17 gram powder in packet 17 g PO DAILY PRN (Reason: constipation) Qty: 5 RF: 0 Discontinued aspirin 81 mg Tablet 81 mg PO QAM RF: 0 Discharge Orders: Discharge Order (Routine); Ordered 06/27/21 Ordered By: Garett Gross/Other Patient Handouts: DVT Post Op Prevention Admission Data Admit Date/Time: 06/22/21 14:08 Attending Provider: Lavon Hodge Admit Provider: Lavon Hodge Primary Care Provider: Tiffany Stratton Other Interventions: Discharge Summary Assessment (RN) Last Done: 06/27/21 11:57
== END 2021-06-27 13:34 | DRG 494 ==
LOC: ASU 08:15 → PACUINP 14:08 → 3E 15:49